=== PATIENT | male | born 1950 | race Caucasian/White ===

== ENCOUNTER → 2020-06-03 | Outpatient (CLI) | payer MEDICARE ==
[~2020-06-03] MED LIST: ALBUTEROL INHALER INH; ASPIRIN 325MG325 MG PO; COZAAR100 MG PO; CRESTOR20 MG PO; FARXIGA5 MG PO; GLUCOPHAGE1000 MG PO; GLUCOTROL 10 MG10 MG PO; HYDROCHLOROTHIA25 MG PO; HYDROCODON-ACE1 EAC6 PO; IBUPROFEN800 MG PO; LEVAQUIN500 MG PO; LOSARTAN-HCTZ1 EAC1 PO; NORCO 7.5-3251 EACH PO; TESTOSTERONE INJ; VANCOMYCIN IV; VIAGRA100 MG PO; VITAMIN C500 M4 PO; WELLBUTRIN XL150 MG PO
== END ==
LOC: KOH-I 14:57
DX: M14.672 Charcot's joint, left ankle and foot (principal); M77.8 Other enthesopathies, not elsewhere classified
CPT/HCPCS: 73610; 73630

== ENCOUNTER → 2020-06-03 | Outpatient (CLI) | payer MEDICARE ==
[2020-06-03 12:53] LABS: HEMOGLOBIN 17.8 gm/dl (14.0-17.5); RED BLOOD COUNT 6.11 M/UL (4.20-5.50); WHITE BLOOD COUNT 5.4 K/UL (4.5-11.0)
[2020-06-03 13:10] LABS: BUN/CREATININE RATIO 25 (0-10)
== END ==
LOC: OPSV2 11:43
PROVIDERS: Podiatrist Foot & Ankle Surgery
DX: Z01.818 Encounter for other preprocedural examination (principal); M14.672 Charcot's joint, left ankle and foot; I44.60 Unspecified fascicular block; R94.31 Abnormal electrocardiogram [ECG] [EKG]
CPT/HCPCS: 36415; 80048; 82652; 83036; 85025; 93005

== ENCOUNTER → 2020-07-16 | Outpatient (CLI) | payer MEDICARE ==
[2020-07-16 11:25] LABS: HEMOGLOBIN 17.7 gm/dl (14.0-17.5); RED BLOOD COUNT 5.83 M/UL (4.20-5.50); WHITE BLOOD COUNT 6.1 K/UL (4.5-11.0)
[2020-07-16 11:53] LABS: BUN/CREATININE RATIO 22 (0-10)
== END ==
LOC: OPSV2 09:30
PROVIDERS: Podiatrist Foot & Ankle Surgery
DX: Z01.818 Encounter for other preprocedural examination (principal); M14.672 Charcot's joint, left ankle and foot
CPT/HCPCS: 36415; 80048; 83036; 85025; 93005

== ENCOUNTER 2020-07-17 07:25 | Observation (INO) | payer MEDICARE ==
[~2020-07-17] VITALS: Ht 190.5 cm; Wt 95.3 kg
[~2020-07-17 07:25] MED LIST changes: -HYDROCODON-ACE1 EAC6 PO
[2020-07-18 04:42] LABS: HEMOGLOBIN 14.8 gm/dl (14.0-17.5); RED BLOOD COUNT 4.96 M/UL (4.20-5.50); WHITE BLOOD COUNT 12.5 K/UL (4.5-11.0)
[2020-07-18 04:46] LABS: BUN/CREATININE RATIO 15 (0-10)
[2020-07-18] MEDS ORDERED: HYDROCODON-ACE1 EAC6 PO (12:01)
== END 2020-07-18 14:50 | disposition home or self-care (01) ==
LOC: OR 07:25 → M/S 16:42 → OR 16:43 → M/S 07-18 14:50
PROVIDERS: Internal Medicine; Podiatrist Foot & Ankle Surgery; ADMIT Internal Medicine Infectious Disease
PROC: 0QSP04Z Reposition Left Metatarsal with Internal Fixation Device, Open Approach (ICD-10-PCS; 2020-07-17)
PROC: 0SG Lower Joints, Fusion (ICD-10-PCS; 2020-07-17)
PROC: 0L8 Tendons, Division (ICD-10-PCS; principal; 2020-07-17 10:45)
PROC: 0SGL0KZ Fusion of Left Tarsometatarsal Joint with Nonautologous Tissue Substitute, Open Approach (ICD-10-PCS; 2020-07-17 10:45)
DX: E11.610 Type 2 diabetes mellitus with diabetic neuropathic arthropathy (principal); I10 Essential (primary) hypertension; I49.9 Cardiac arrhythmia, unspecified; F32.9 Major depressive disorder, single episode, unspecified; F41.9 Anxiety disorder, unspecified; Z88.8 Allergy status to other drugs, medicaments and biological substances; Z79.4 Long term (current) use of insulin; Z79.899 Other long term (current) drug therapy; Z87.01 Personal history of pneumonia (recurrent); Z20.822 Contact with and (suspected) exposure to COVID-19
CPT/HCPCS: 36415; 73630; 76000; 80048; 82962; 83735; 85025; 96365; 96375; 96376; C1713; C1769; G0378; J0690; J2001; J2270; J2405; J2550; J2704; J2795; J3010; J3370; J7030; J7120; Q4133

== ENCOUNTER → 2020-07-29 | Outpatient (CLI) | payer MEDICARE ==
[~2020-07-29] MED LIST changes: +HYDROCODON-ACE1 EAC6 PO
== END ==
LOC: KOH-I 14:02
DX: M24.675 Ankylosis, left foot (principal); M24.672 Ankylosis, left ankle; S92.312A Displaced fracture of first metatarsal bone, left foot, initial encounter for closed fracture; Z98.890 Other specified postprocedural states; X58.XXXA Exposure to other specified factors, initial encounter
CPT/HCPCS: 73610; 73630

== ENCOUNTER → 2020-07-31 | Outpatient (CLI) | payer MEDICARE ==
[~2020-07-31] VITALS: Ht 190.5 cm; Wt 95.3 kg
== END ==
LOC: OPSV 08:00
DX: M86.9 Osteomyelitis, unspecified (principal)
CPT/HCPCS: 96365; 96366; J2407; J7070

== ENCOUNTER → 2020-08-12 | Outpatient (CLI) | payer MEDICARE | LOC: KOH-I 13:54 | DX: M14.672 Charcot's joint, left ankle and foot (principal); Z98.890 Other specified postprocedural states; R93.6 Abnormal findings on diagnostic imaging of limbs | CPT/HCPCS: 73610; 73630 ==

== ENCOUNTER → 2020-08-26 | Outpatient (CLI) | payer MEDICARE | LOC: KOH-I 13:56 | DX: A52.16 Charcot's arthropathy (tabetic) (principal); S92.312A Displaced fracture of first metatarsal bone, left foot, initial encounter for closed fracture | CPT/HCPCS: 73610; 73630 ==

== ENCOUNTER → 2020-09-10 | Outpatient (CLI) | payer MEDICARE | LOC: KOH-I 13:06 | DX: M14.672 Charcot's joint, left ankle and foot (principal); S92.312D Displaced fracture of first metatarsal bone, left foot, subsequent encounter for fracture with routine healing; Z98.1 Arthrodesis status | CPT/HCPCS: 73610; 73630 ==

== ENCOUNTER → 2020-10-08 | Outpatient (CLI) | payer MEDICARE | LOC: KOH-I 13:26 | DX: M14.672 Charcot's joint, left ankle and foot (principal) | CPT/HCPCS: 73610; 73630 ==

== ENCOUNTER → 2020-11-11 | Outpatient (CLI) | payer MEDICARE | LOC: KOH-I 13:53 | DX: M14.672 Charcot's joint, left ankle and foot (principal); Z98.890 Other specified postprocedural states | CPT/HCPCS: 73610; 73630 ==

== ENCOUNTER → 2020-12-09 | Outpatient (CLI) | payer MEDICARE | LOC: KOH-I 13:46 | DX: M14.672 Charcot's joint, left ankle and foot (principal) | CPT/HCPCS: 73630 ==

== ENCOUNTER → 2021-02-03 | Outpatient (CLI) | payer MEDICARE | LOC: KOH-I 15:55 | DX: M79.672 Pain in left foot (principal) | CPT/HCPCS: 73630 ==

== ENCOUNTER → 2021-06-03 | Outpatient (CLI) | payer MEDICARE | LOC: KOH-I 14:10 | DX: M79.672 Pain in left foot (principal); M25.572 Pain in left ankle and joints of left foot | CPT/HCPCS: 73610; 73630 ==

== ENCOUNTER → 2021-06-19 | Outpatient (CLI) | payer MEDICARE ==
[~2021-06-19] MED LIST changes: +ALBUTEROL; +BUDESONIDE; +HUMALOG; +KLONOPIN0.5 MG PO; +PROZAC 20 MG CA20 MG PO
[2021-06-19 12:23] LABS: HEMOGLOBIN 17.2 gm/dl (14.0-17.5); RED BLOOD COUNT 5.96 M/UL (4.20-5.50); WHITE BLOOD COUNT 7.3 K/UL (4.5-11.0)
[2021-06-19 12:49] LABS: BUN/CREATININE RATIO 20 (0-10)
== END ==
LOC: OPSV2 11:00
PROVIDERS: Podiatrist Foot & Ankle Surgery
DX: Z01.818 Encounter for other preprocedural examination (principal); A52.16 Charcot's arthropathy (tabetic); T84.84XA Pain due to internal orthopedic prosthetic devices, implants and grafts, initial encounter
CPT/HCPCS: 80048; 83036; 85027; 93005

== ENCOUNTER → 2021-09-18 | Outpatient (CLI) | payer MEDICARE | LOC: KOH-I 13:31 | DX: M25.572 Pain in left ankle and joints of left foot (principal); A52.16 Charcot's arthropathy (tabetic) | CPT/HCPCS: 73610; 73630 ==

== ENCOUNTER → 2021-10-02 | Outpatient (CLI) | payer MEDICARE ==
[~2021-10-02] MED LIST changes: +CLOTRIMAZOLE-BE30 ML TP; +FARXIGA10 MG PO; -GLUCOPHAGE1000 MG PO; +HUMALOG MI100 UNIT/4 SQ; +METFORMIN HCL1000 MG PO; +MULTIVITAMIN1 EACH PO; +TESTOSTERO200 MG/1 M IM; +VITAMIN C100 MG PO; +VITAMIN D 2
[2021-10-02 11:30] LABS: HEMOGLOBIN 15.8 gm/dl (14.0-17.5); RED BLOOD COUNT 5.95 M/UL (4.20-5.50); WHITE BLOOD COUNT 6.5 K/UL (4.5-11.0)
[2021-10-02 11:56] LABS: BUN/CREATININE RATIO 20 (0-10)
== END ==
LOC: OPSV2 10:00
PROVIDERS: Podiatrist Foot & Ankle Surgery
DX: Z01.818 Encounter for other preprocedural examination (principal)
CPT/HCPCS: 80048; 83036; 85027; 93005

== ENCOUNTER 2021-10-08 07:00 | Inpatient (IN) | payer MEDICARE ==
[~2021-10-08] VITALS: Ht 190.5 cm; Wt 95.3 kg
[~2021-10-08 07:00] MED LIST changes: -MULTIVITAMIN1 EACH PO; -VITAMIN C100 MG PO
[2021-10-08] MEDS ORDERED: VITAMIN C100 MG PO (07:53)
[2021-10-08] MEDS ORDERED: WELLBUTRIN XL150 MG PO (07:55)
[2021-10-08] MEDS ORDERED: MULTIVITAMIN1 EACH PO (18:14)
[2021-10-09 06:30] LABS: HEMOGLOBIN 13.3 gm/dl (14.0-17.5); WHITE BLOOD COUNT 9.4 K/UL (4.5-11.0)
[2021-10-09 06:45] LABS: BUN/CREATININE RATIO 21 (0-10)
[2021-10-10 04:35] LABS: HEMOGLOBIN 12.7 gm/dl (14.0-17.5); RED BLOOD COUNT 4.87 M/UL (4.20-5.50); WHITE BLOOD COUNT 7.2 K/UL (4.5-11.0)
[2021-10-10 04:53] LABS: BUN/CREATININE RATIO 14 (0-10)
[2021-10-10] MEDS ORDERED: CIPRO500 MG PO (09:44)
[2021-10-10] MEDS ORDERED: ZYVOX600 MG PO (09:44)
[2021-10-10] MEDS ORDERED: AMOX TR-K CLV1 EAC4 PO (10:33)
[2021-10-10] MEDS ORDERED: HYDROCODON-ACE1 EAC4 PO (10:35)
== END 2021-10-10 12:38 | disposition home health service (06) | DRG 496 ==
LOC: OR 07:00 → M/S 16:15 → OR 18:06 → M/S 18:07 → OR 10-10 10:30 → M/S 10-10 12:38
PROVIDERS: Podiatrist Foot & Ankle Surgery; ADMIT Internal Medicine
PROC: 0QPH04Z Removal of Internal Fixation Device from Left Tibia, Open Approach (ICD-10-PCS; principal; 2021-10-08 15:30)
PROC: 0SG Lower Joints, Fusion (ICD-10-PCS; principal; 2021-10-08 15:30)
PROC: 0SGL07Z Fusion of Left Tarsometatarsal Joint with Autologous Tissue Substitute, Open Approach (ICD-10-PCS; principal; 2021-10-08 15:30)
PROC: 0LSP0ZZ Reposition Left Lower Leg Tendon, Open Approach (ICD-10-PCS; 2021-10-08 15:30)
DX: T84.213A Breakdown (mechanical) of internal fixation device of bones of foot and toes, initial encounter (principal); Z16.21 Resistance to vancomycin; Z20.822 Contact with and (suspected) exposure to COVID-19; E11.610 Type 2 diabetes mellitus with diabetic neuropathic arthropathy; M21.6X2 Other acquired deformities of left foot; E11.40 Type 2 diabetes mellitus with diabetic neuropathy, unspecified; I10 Essential (primary) hypertension; F41.9 Anxiety disorder, unspecified; M62.462 Contracture of muscle, left lower leg; F32.A Depression, unspecified; Z79.4 Long term (current) use of insulin; Z79.899 Other long term (current) drug therapy; Z83.3 Family history of diabetes mellitus; Z82.49 Family history of ischemic heart disease and other diseases of the circulatory system; Z90.49 Acquired absence of other specified parts of digestive tract; Z80.1 Family history of malignant neoplasm of trachea, bronchus and lung; Z87.01 Personal history of pneumonia (recurrent)
CPT/HCPCS: 36415; 73630; 76000; 80048; 82962; 85027; 96372; 96375; 96376; C1713; G0378; J0690; J1100; J1170; J1335; J1650; J1885; J2001; J2020; J2250; J2405; J2704; J2795; J3010; J3370; J7030; J7070; J7120; Q4133

== ENCOUNTER → 2021-10-14 | Outpatient (CLI) | payer MEDICARE ==
[~2021-10-14] MED LIST changes: +AMOX TR-K CLV1 EAC4 PO; +CIPRO500 MG PO; +HYDROCODON-ACE1 EAC4 PO; +MULTIVITAMIN1 EACH PO; +VITAMIN C100 MG PO; +ZYVOX600 MG PO
== END ==
LOC: KOH-I 13:22
DX: M79.672 Pain in left foot (principal)
CPT/HCPCS: 73630

== ENCOUNTER → 2021-10-30 | Outpatient (CLI) | payer MEDICARE | LOC: KOH-I 13:58 | DX: M79.671 Pain in right foot (principal) | CPT/HCPCS: 73630 ==

== ENCOUNTER → 2021-11-20 | Outpatient (CLI) | payer MEDICARE | LOC: KOH-I 15:30 | DX: M79.672 Pain in left foot (principal) | CPT/HCPCS: 73630 ==

== ENCOUNTER → 2021-12-11 | Outpatient (CLI) | payer MEDICARE | LOC: KOH-I 15:18 | DX: M79.672 Pain in left foot (principal) | CPT/HCPCS: 73630 ==

== ENCOUNTER → 2022-01-05 | Outpatient (CLI) | payer MEDICARE | LOC: KOH-I 13:36 | DX: M79.672 Pain in left foot (principal) | CPT/HCPCS: 73630 ==

== ENCOUNTER → 2022-01-26 | Outpatient (CLI) | payer MEDICARE | LOC: KOH-I 14:14 | DX: M79.672 Pain in left foot (principal) | CPT/HCPCS: 73630 ==